=== PATIENT | female | born 1995 | race Caucasian/White ===

== ENCOUNTER 2019-12-29 12:13 | Emergency (ER) | payer BC ==
[~2019-12-29] VITALS: Ht 167.6 cm; Wt 78.5 kg
--- NOTE | 2019-12-29 12:19 | NUR ---
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 PER L&D RN, PT TO BE EVALUATED IN ED WITH HEART TONE ASSESSMENT IN ED.
[2019-12-29 12:22] VITALS: BP 131/76
--- NOTE | 2019-12-29 12:40 | NUR ---
FHTS 148 BY DOPPLER, STATES FETUS ACTIVE, DENIES CRAMPING OR VAG BLEEDING
--- NOTE | 2019-12-29 13:06 | NUR ---
BREAK RN: THIS IS A 24 YEAR OLD WHO C/O OF LT LEG PAIN AND SWELLING BEHIND KNEE STARTING THIS MORNING. PT 21 WEEKS .
--- NOTE | 2019-12-29 14:00 | NUR ---
PROVIDED SNACK. PT IN NO DISTRESS AT THIS TIME
--- NOTE | 2019-12-29 14:24 | NUR ---
Patient given discharge instructions and they have confirmed that they understand the instructions. Patient ambulatory with steady gait.
== END 2019-12-29 14:26 | disposition home or self-care (01) ==
LOC: ED 14:19
DX: M25.562 Pain in left knee (principal); M79.662 Pain in left lower leg; M79.89 Other specified soft tissue disorders; Z79.899 Other long term (current) drug therapy
CPT/HCPCS: 99284